=== PATIENT | female | born 1985 | race Caucasian/White ===

== ENCOUNTER 2018-01-30 10:38 | Day surgery (SDC) | payer BC ==
[2018-01-30] MEDS ORDERED: MIDAZOLAM 1 MG/ML 2 ML INJ (14:41)
[2018-01-30] MEDS ORDERED: FENTAnyl 50 MCG/ML VIAL (14:41)
[2018-01-30] MEDS: LIDOCAINE 1%/EPI 30 ML INJ (15:21)
[2018-01-30] MEDS: OXYMETAZOLINE 0.05% 15 ML NAS SPRAY NASAL (15:22)
[2018-01-30] MEDS ORDERED: ONDANSETRON 4 MG INJ (16:02)
[2018-01-30] MEDS ORDERED: LIDOCAINE 2% (SDV) 5 ML INJ (16:03)
[2018-01-30] MEDS ORDERED: ROCURONIUM 50 MG INJ (16:03)
[2018-01-30] MEDS ORDERED: GLYCOPYRROLATE 0.4 MG INJ (16:03)
[2018-01-30] MEDS ORDERED: NEOSTIGMINE 3 MG/3 ML SYRINGE (16:03)
[2018-01-30] MEDS ORDERED: PROPOFOL 20 ML (16:03)
[2018-01-30] MEDS ORDERED: MEPERIDINE 25 MG INJ IV (16:30)
[2018-01-30] MEDS ORDERED: FENTAnyl 50 MCG/ML VIAL IV (16:30)
[2018-01-30] MEDS ORDERED: ONDANSETRON 4 MG INJ IV (16:30)
[2018-01-30] MEDS ORDERED: DIPHENHYDRAMINE 50 MG INJ IV (16:30)
[2018-01-30] MEDS ORDERED: HYDROmorphONE 1 MG/5 ML IV SYRINGE IV ×2 (16:30)
== END 2018-01-30 17:36 | disposition home or self-care (01) ==
LOC: SDS 10:38
DX: J32.4 Chronic pansinusitis (principal)
CPT/HCPCS: 30140; 88300

== ENCOUNTER 2018-05-12 07:24 | Day surgery (SDC) | payer BC ==
[2018-05-12] MEDS ORDERED: MEPERIDINE 100 MG INJ (09:12)
[2018-05-12] MEDS ORDERED: PROPOFOL 20 ML (09:13)
[2018-05-12] MEDS ORDERED: ONDANSETRON 4 MG INJ (09:13)
[2018-05-12] MEDS ORDERED: CEFAZOLIN 1 GM INJ (09:13)
[2018-05-12] MEDS ORDERED: LIDOCAINE 2% (SDV) 5 ML INJ (09:13)
[2018-05-12] MEDS ORDERED: METOCLOPRAMIDE 10 MG INJ (09:13)
[2018-05-12] MEDS ORDERED: morphine 2 MG INJ IV (09:30)
[2018-05-12] MEDS ORDERED: MEPERIDINE 25 MG INJ IV (10:30)
[2018-05-12] MEDS ORDERED: OXYCODONE/ACETAMINOPHEN (5/325) TAB PO (10:30)
[2018-05-12] MEDS ORDERED: MIDAZOLAM 1 MG/ML 2 ML INJ IV (10:30)
[2018-05-12] MEDS ORDERED: FENTAnyl 50 MCG/ML VIAL IV ×3 (10:30)
[2018-05-12] MEDS ORDERED: METOCLOPRAMIDE 10 MG INJ IV (10:30)
[2018-05-12] MEDS ORDERED: HYDROmorphONE 1 MG/5 ML IV SYRINGE IV ×2 (10:30)
[2018-05-12] MEDS ORDERED: DIPHENHYDRAMINE 50 MG INJ IV (10:30)
[2018-05-12] MEDS: BACITRACIN/POLYMYXIN 28.35 GM OINT TOP (11:10)
[2018-05-12] MEDS: ROPIVACAINE 0.5 % 30 ML VIAL (11:11)
[2018-05-12] MEDS: HYDROmorphONE 1 MG/5 ML IV SYRINGE IV (13:10)
[2018-05-12] MEDS: ONDANSETRON 4 MG INJ IV (13:18)
[2018-05-12] MEDS: KETOROLAC 30 MG INJ IV (13:18)
[2018-05-12] MEDS: OXYCODONE/ACETAMINOPHEN (5/325) TAB PO (13:49)
== END 2018-05-12 14:40 | disposition home or self-care (01) ==
LOC: SDS 07:24
DX: S83.212D Bucket-handle tear of medial meniscus, current injury, left knee, subsequent encounter (principal); X58.XXXD Exposure to other specified factors, subsequent encounter; Z87.891 Personal history of nicotine dependence
CPT/HCPCS: 29881; 82306

== ENCOUNTER 2018-11-12 16:24 | Emergency (ER) | payer BC ==
[2018-11-12] MEDS: KETOROLAC 30 MG INJ IM (17:09)
[2018-11-12 17:16] LABS: ADD UMIC YES; UR ASCORBIC ACID NEGATIVE (NEGATIVE); UR BILIRUBIN (Dip) NEGATIVE (NEGATIVE); UR BLOOD (Dip) NEGATIVE (NEGATIVE); UR CLARITY SLIGHTLY CLOUDY (CLEAR); UR COLOR AMBER (YELLOW); UR GLUCOSE (Dip) NEGATIVE (NEGATIVE); UR KETONES (Dip) TRACE mg/dL (NEGATIVE); UR LEUKOCYTE ESTERASE (Dip) NEGATIVE Leu/ul (NEGATIVE); UR MUCUS FEW /HPF (NONE SEEN); UR NITRITE (Dip) NEGATIVE (NEGATIVE); UR RBC 4 /HPF (0-5); UR SPECIFIC GRAVITY (Dip) 1.026 (1.003-1.030); UR SQUAMOUS EPITHELIAL CELL FEW /HPF (FEW); UR TOTAL PROTEIN (Dip) 2+ mg/dl (NEGATIVE); UR UROBILINOGEN (Dip) NEGATIVE (NEGATIVE); UR WBC 3 /HPF (0-5)
== END 2018-11-12 18:00 | disposition home or self-care (01) ==
LOC: FTE 16:24
DX: N83.209 Unspecified ovarian cyst, unspecified side (principal); F17.210 Nicotine dependence, cigarettes, uncomplicated
CPT/HCPCS: 74176; 81001; 81025; 96372; 99285-25